=== PATIENT | male | born 1960 | race Caucasian/White ===

== ENCOUNTER 2024-05-25 10:44 | Day surgery (SDC) | payer BC ==
[~2024-05-25] VITALS: Ht 172.7 cm; Wt 70.4 kg
[~2024-05-25 10:44] MED LIST: LR 1,000 ML IV SCH
[2024-05-25 11:15] VITALS: BP 125/76; PULSE 58; TEMP 97.7
[2024-05-25] MEDS ORDERED: MULTIPLE VITAMI1 CAP PO (11:17)
[2024-05-25] MEDS ORDERED: VITAMIN B12 681 TAB PO (11:18)
[2024-05-25] MEDS ORDERED: Succinylcholine PF 200 MG/10 ML SYRINGE IV ONE (11:57)
[2024-05-25] MEDS ORDERED: Lidocaine PF 2% (20 MG/ML) 5 ML VIAL ONE (11:58)
[2024-05-25] MEDS ORDERED: Rocuronium 50 MG/5 ML Multi-Dose VIAL ONE (11:59)
[2024-05-25] MEDS ORDERED: fentaNYL 50 MCG/ML 2 ML VIAL ONE ×2 (11:59→13:38)
[2024-05-25] MEDS ORDERED: dexAMETHasone 10 MG/ML VIAL ONE ×2 (13:11→14:43)
[2024-05-25] MEDS ORDERED: Ondansetron 4 MG/2 ML VIAL ONE ×2 (13:11→14:43)
[2024-05-25] MEDS ORDERED: Ketorolac 30 MG/ML VIAL ONE (13:27)
[2024-05-25] MEDS ORDERED: HYDROmorphone 1 MG/1 ML SYRINGE [PACU/SDC ONLY] IV PRN (13:30)
[2024-05-25] MEDS ORDERED: hydrALAZINE 20 MG/ML 1 ML VIAL IV PRN (13:30)
[2024-05-25] MEDS ORDERED: fentaNYL 50 MCG/ML 1 ML SYRINGE/VIAL [PACU/SDC ONLY] IV PRN (13:30)
[2024-05-25] MEDS ORDERED: Meperidine 50 MG/ML 1 ML VIAL IV PRN (13:30)
[2024-05-25] MEDS ORDERED: Ondansetron 4 MG/2 ML VIAL IV PRN ×2 (13:30→14:15)
[2024-05-25] MEDS ORDERED: NORCO 325 MG-51 TAB PO (14:13)
[2024-05-25] MEDS ORDERED: Acetaminophen 325 MG TAB PO PRN (14:15)
[2024-05-25 14:35] VITALS: BP 130/63; PULSE 63; TEMP 96.6
[2024-05-25 14:45] VITALS: BP 134/53; PULSE 58
--- NOTE | 2024-05-25 15:36 | NUR ---
1435- PT RETURNS FROM PACU VIA CART TO [facility]. MONITORS ON AND ALARMS SET. CALL LIGHT WITHIN REACH. REPORT RECEIVED FROM EVELINE SERRATO. PT ALERT AND ORIENTED. PT REQUESTS FOOD AND DRINK. PT DENIES ANY PAIN OR NAUSEA. 1445- PT TAKING FOOD AND DRINK WELL. NO COMPLICATIONS NOTED. 1515- DISCHARGE INSTRUCTIONS GIVEN TO PT. ALL QUESTIONS ANSWERED. 1530- PT TRANSFERRED OUT OF THE HOSPITAL VIA WHEELCHAIR TO OWN PERSONAL VEHICLE DRIVEN BY .
== END 2024-05-25 15:30 | disposition home or self-care (01) ==
LOC: SDCO 10:44
DX: K40.90 Unilateral inguinal hernia, without obstruction or gangrene, not specified as recurrent (principal)
CPT/HCPCS: C1781; J0737; J1100; J1885; J2405; J2704; J3010; J7120